=== PATIENT | female | born 1960 | race African-American/Black ===

== ENCOUNTER → 2019-11-16 | Day surgery (SDC) | payer OTHER ==
[2019-11-11 14:37] LABS: BASOPHILS # (AUTO) 0.1 (0.0-0.1); BASOPHILS % 0.7 % (0.0-1.0); EOSINOPHILS # (AUTO) 0.5 (0.0-0.4); EOSINOPHILS % 4.4 % (0.0-6.0); HEMATOCRIT 32.2 % (34.2-44.1); HEMOGLOBIN 9.1 g/dL (12.0-16.0); LYMPHOCYTES # (AUTO) 3.6 (1.0-3.2); LYMPHOCYTES % 34.7 % (18.0-39.1); MEAN CORPUSCULAR HEMOGLOBIN 21.3 pg (28-32); MEAN CORPUSCULAR HGB CONC 28.3 g/dL (31-35); MEAN CORPUSCULAR VOLUME 75.2 fL (81-99); MONOCYTES # (AUTO) 0.6 (0.2-0.8); MONOCYTES % 5.5 % (4.4-11.3); NEUTROPHILS # (AUTO) 5.7 (2.1-6.9); NEUTROPHILS % 54.4 % (38.7-80.0); PLATELET COUNT 385 x10e3/uL (140-360); RED BLOOD COUNT 4.28 x10e6/uL (3.6-5.1); RED CELL DISTRIBUTION WIDTH 21.5 % (11.7-14.4)
[~2019-11-16] MED LIST: AMLODIPINE BESY10 MG PO; AMOXICILLIN250 MG PO; ASPIRIN325 MG PO; BACLOFEN10 MG PO; CLONAZEPAM0.5 MG PO; DICLOFENAC PO; DOCUSATE SODIU100 MG PO; FENTANYL CITRATE/PF 100MCG/2 ML INJ ONE; FERROUS SULFAT325 M1 PO; GABAPENTIN300 MG PO; HYOSCYAMINE 0.125 MG TAB ONE; ISOSORBIDE MONO30 MG PO; LIDOCAINE HCL 2% LOCAL INJ 5 ML SDV VIAL INJ ONE; LIPITOR10 MG PO; LISINOPRIL10 MG PO; METHOCARBAMOL750 MG PO; METOPROLOL SUCC25 MG PO; MIDAZOLAM HCL 2 MG/2 ML VIAL ONE; MULTI-VITAMIN1 EACH PO; NITROSTAT0.4 MG SL; NORCO 10-325 T1 EACH PO; OMEPRAZOLE40 MG PO; PLAVIX75 MG PO; POLYETHYLENE GL17 GM PO; PROPOFOL IV EMULSION 10 MG/ML 20 ML VIAL ONE; SUCRALFATE1 GM PO; TRAZODONE HCL50 MG PO
[2019-11-16 14:45] VITALS: BP 146/88
== END | disposition home or self-care (01) ==
LOC: OR 09:47
PROVIDERS: ATTEND Internal Medicine Gastroenterology
DX: K29.50 Unspecified chronic gastritis without bleeding (principal); K63.5 Polyp of colon; K62.1 Rectal polyp; K25.9 Gastric ulcer, unspecified as acute or chronic, without hemorrhage or perforation; K63.3 Ulcer of intestine; K31.89 Other diseases of stomach and duodenum; K59.09 Other constipation; B96.81 Helicobacter pylori [H. pylori] as the cause of diseases classified elsewhere; K21.9 Gastro-esophageal reflux disease without esophagitis; K20.9 Esophagitis, unspecified; K44.9 Diaphragmatic hernia without obstruction or gangrene; Z98.0 Intestinal bypass and anastomosis status; K64.8 Other hemorrhoids; D50.9 Iron deficiency anemia, unspecified; I69.854 Hemiplegia and hemiparesis following other cerebrovascular disease affecting left non-dominant side; J44.9 Chronic obstructive pulmonary disease, unspecified; I25.10 Atherosclerotic heart disease of native coronary artery without angina pectoris; I10 Essential (primary) hypertension; E78.5 Hyperlipidemia, unspecified; I25.2 Old myocardial infarction; F17.210 Nicotine dependence, cigarettes, uncomplicated; Z01.810 Encounter for preprocedural cardiovascular examination; Z01.812 Encounter for preprocedural laboratory examination; Z11.59 Encounter for screening for other viral diseases; Z79.82 Long term (current) use of aspirin; Z79.02 Long term (current) use of antithrombotics/antiplatelets; Z68.28 Body mass index [BMI] 28.0-28.9, adult; Z80.0 Family history of malignant neoplasm of digestive organs
CPT/HCPCS: 36415; 43239; 45380; 45384; 85025; 93005; J2001; J2250; J2704; J3010; U0002; 45378; 45385

== ENCOUNTER → 2019-12-17 | Outpatient (CLI) | payer OTHER ==
[~2019-12-17] MED LIST changes: -FENTANYL CITRATE/PF 100MCG/2 ML INJ ONE; -HYOSCYAMINE 0.125 MG TAB ONE; +IOPAMIDOL 370 MG/ML 200 ML INFUS..BTL INJ ONE; -LIDOCAINE HCL 2% LOCAL INJ 5 ML SDV VIAL INJ ONE; -MIDAZOLAM HCL 2 MG/2 ML VIAL ONE; -PROPOFOL IV EMULSION 10 MG/ML 20 ML VIAL ONE; +SODIUM CHLORIDE 0.9% 50ML 50 ML ONE
[2019-12-17 11:51] LABS: BLOOD UREA NITROGEN 10 mg/dL (7-26); BUN/CREATININE RATIO 14 (6-25); CREATININE, SERUM 0.72 mg/dL (0.57-1.11); EST GLOMERULAR FILTRATION RATE > 60 ML/MIN (60-)
--- NOTE | 2019-12-17 13:01 | Diagnostic Imaging Report ---
CT of the abdomen and pelvis with contrast TECHNIQUE: CT of the abdomen and pelvis WITH intravenous contrast and WITHOUT oral contrast. Dose modulation, iterative reconstruction, and/or weight-based adjustment of the mA/kV was utilized to reduce the radiation dose to as low as reasonably achievable. IV CONTRAST: 100 mL of severe 370 ORAL CONTRAST: None RADIATION DOSE: Total DLP: 383 mGy*cm COMPLICATIONS: None INDICATION: ^[id number] ^1150 ^RIGHT LOWER QUADRANT PAIN. COMPARISON: None. FINDINGS: LOWER THORAX: Unremarkable. HEPATOBILIARY: There are innumerable bilateral hypodense lesions within the liver. The largest in the right lobe is noted within segment 5 measuring up to 2.4 cm.. Largest within the left hepatic lobe is noted within segment 2 measuring up to 1.8 cm. Gallbladder is unremarkable. No biliary ductal dilatation. SPLEEN: No splenomegaly. PANCREAS: No focal masses or ductal dilatation. ADRENALS: No adrenal nodules. KIDNEYS/URETERS: No hydronephrosis, stones, or masses. Ureters are not dilated. PELVIC ORGANS/BLADDER: Urinary bladder is unremarkable. Uterus and ovaries are surgically absent. No suspicious adnexal mass PERITONEUM/RETROPERITONEUM: No free air or fluid. LYMPH NODES: No lymphadenopathy. VESSELS: Mild ectasia of the infrarenal abdominal aorta is noted with mild to moderate noncalcified and calcified atherosclerotic plaque disease measuring up to 2.8 cm in AP diameter. GI TRACT: Bowel loops are not dilated. Stomach is moderately distended and unremarkable. Multiple diverticula are noted of the sigmoid colon without surrounding inflammatory changes. Moderate stool burden is noted throughout the colon. Normal appendix is noted without surrounding inflammatory changes. Appendix is not dilated. There is focal appendicolith or retained contrast within the mid aspect. Negative for distal dilatation. BONES AND SOFT TISSUES: Negative for acute osseous abnormality. Focal moderate to severe degenerative changes noted at L5 1 with vacuum phenomena. No suspicious lytic or blastic lesion is identified. Soft tissues are unremarkable. IMPRESSION: 1. Negative for acute abdominopelvic process. 2. Multiple scattered hypoattenuating lesion within the liver are nonspecific. Correlate with history and consider liver protocol MRI or CT for further evaluation if clinically indicated. 3. Uncomplicated colonic diverticulosis. 4. Moderate colonic stool retention. 5. Infrarenal abdominal aortic ectasia measuring up to 2.8 cm. 6. Specifically the appendix is nondilated and there are no acute inflammatory changes. Either retained contrast or appendicolith is identified within the mid to distal appendix. Signed by: Wai Martel MD on 12/17/2019 12:58 PM
== END ==
LOC: CT 10:33
PROVIDERS: ATTEND Internal Medicine Gastroenterology
DX: R10.31 Right lower quadrant pain (principal)
CPT/HCPCS: 36415; 74177; 82565; 84520; Q9967

== ENCOUNTER → 2020-02-25 | Outpatient (CLI) | payer OTHER ==
[~2020-02-25] MED LIST changes: +GADOBENATE DIMEGLUMINE 1 ML IV ONE; -IOPAMIDOL 370 MG/ML 200 ML INFUS..BTL INJ ONE; +SODIUM CHLORIDE 0.9% 100 ML ONE; -SODIUM CHLORIDE 0.9% 50ML 50 ML ONE
[2020-02-25 15:09] LABS: BLOOD UREA NITROGEN 13 mg/dL (7-26); BUN/CREATININE RATIO 16 (6-25); CREATININE, SERUM 0.79 mg/dL (0.57-1.11); EST GLOMERULAR FILTRATION RATE > 60 ML/MIN (60-)
--- NOTE | 2020-02-26 12:48 | Diagnostic Imaging Report ---
TECHNIQUE: MRI of the abdomen WITHOUT and WITH intravenous contrast. INDICATION: ^OTHER DISEASE OF LIVER. COMPARISON: CT from 12/17/2019. FINDINGS: LOWER THORAX: Unremarkable. LIVER: No hepatic signal abnormality. There are greater than 10 simple cysts in the liver. The largest measures 1.8 cm in segment V. A cyst in segment II measures 2.2 cm and has a few, thin internal septations. BILIARY: Foci in the gallbladder which are hyperintense on T1-weighted imaging are likely small stones. No biliary ductal dilatation or filling defect. SPLEEN: No splenomegaly. PANCREAS: No focal masses or ductal dilatation. ADRENALS: A left adrenal nodule measures 1.3 cm and loses signal on out of phase imaging, consistent with an adenoma. Additional left adrenal nodule versus signal on out of phase imaging and measures 1.4 cm. KIDNEYS/URETERS: No hydronephrosis or solid mass lesions. A right lower pole simple renal cyst measures 0.8 cm. No routine follow-up imaging is recommended. Mild bilateral renal cortical scarring. PERITONEUM/RETROPERITONEUM: No free fluid. LYMPH NODES: No lymphadenopathy. VESSELS: The ectasia of the infrarenal abdominal aorta which measures up to 2.9 cm is unchanged. Conventional hepatic arterial anatomy. The main portal vein is patent and measures 1.2 cm in diameter. GI TRACT: No distention or wall thickening. BONES AND SOFT TISSUES: Unremarkable. IMPRESSION: 1. There are several cysts in the liver. One of the cysts has a few thin internal septations and measures 2.2 cm. 2. Two left adrenal nodules measure up to 1.4 cm and are consistent with adenomas. No routine follow-up imaging is recommended. 3. Cholelithiasis without acute cholecystitis. Signed by: Thom Champagne JR, MD on 02/26/2020 12:44 PM
== END ==
LOC: MRI 14:30
PROVIDERS: ATTEND Internal Medicine Gastroenterology
DX: K76.89 Other specified diseases of liver (principal)
CPT/HCPCS: 36415; 74183; 82565; 84520; J7050